=== PATIENT | male | born 1975 | race Hispanic/Latino ===

== ENCOUNTER 2019-11-11 09:48 | Inpatient (IN) | payer SELFPAY ==
[~2019-11-11] VITALS: Ht 165.1 cm; Wt 61.2 kg
[2019-11-11] MEDS ORDERED: SODIUM CHLORIDE 0.9% 1000ML 1,000 ML IV STA (10:19)
[2019-11-11] MEDS ORDERED: ONDANSETRON HCL INJ 2MG/ML 2ML 2 MG/ML VIAL IV STA (10:19)
[2019-11-11] MEDS ORDERED: PANTOPRAZOLE 40 MG 10ML VIAL IV STA (10:19)
[2019-11-11] MEDS ORDERED: KETOROLAC TROMETHAMINE 30 MG/ML VIAL IV STA (10:19)
[2019-11-11 10:59] LABS: BASOPHILS % 0.2 % (0.0-1.0); HEMOGLOBIN 14.2 g/dL (14.0-18.0); LYMPHOCYTES # (AUTO) 0.7 (1.0-3.2); LYMPHOCYTES % 10.2 % (18.0-39.1); MEAN CORPUSCULAR HEMOGLOBIN 31.3 pg (28-32); MEAN CORPUSCULAR HGB CONC 33.8 g/dL (31-35); MEAN CORPUSCULAR VOLUME 92.7 fL (81-99); MONOCYTES # (AUTO) 0.2 (0.2-0.8); MONOCYTES % 3.6 % (4.4-11.3); NEUTROPHILS # (AUTO) 5.5 (2.1-6.9); NEUTROPHILS % 85.7 % (38.7-80.0); PLATELET COUNT 113 x10e3/uL (140-360); RED BLOOD COUNT 4.53 x10e6/uL (4.3-5.7); RED CELL DISTRIBUTION WIDTH 13.5 % (11.7-14.4)
[2019-11-11 11:16] LABS: INR 0.98; PROTHROMBIN TIME 13.6 seconds (11.9-14.5)
[2019-11-11 11:17] LABS: PARTIAL THROMBOPLASTIN TIME 40.2 seconds (23.8-35.5)
[2019-11-11 11:25] LABS: ALANINE AMINOTRANSFERASE 140 IU/L (0-55); ALBUMIN 3.1 g/dL (3.5-5.0); ALBUMIN/GLOBULIN RATIO 0.7 (0.8-2.0); ALKALINE PHOSPHATASE 209 IU/L (40-150); ANION GAP 17.3 mmol/L (8-16); BLOOD UREA NITROGEN 7 mg/dL (7-26); BUN/CREATININE RATIO 8 (6-25); CARBON DIOXIDE 27 mmol/L (22-29); CHLORIDE 96 mmol/L (98-107); CREATINE KINASE 92 IU/L (30-200); CREATININE, SERUM 0.91 mg/dL (0.72-1.25); EST GLOMERULAR FILTRATION RATE > 60 ML/MIN (60-); GLUCOSE 103 mg/dL (74-118); POTASSIUM 3.3 mmol/L (3.5-5.1); SODIUM 137 mmol/L (136-145)
[2019-11-11] MEDS ORDERED: CEFTRIAXONE SOD 1 GM/NS 50 ML 50 ML IV SCH (11:45)
[2019-11-11 12:02] LABS: CLARITY,URINE CLEAR (CLEAR); COLOR,URINE YELLOW (YELLOW)
[2019-11-11 12:03] LABS: BILIRUBIN,URINE MODERATE (NEGATIVE); KETONES,URINE NEGATIVE (NEGATIVE); LEUKOCYTE ESTERASE ,URINE NEGATIVE (NEGATIVE); NITRITE,URINE NEGATIVE (NEGATIVE); PROTEIN,URINE DIPSTICK 2+ (NEGATIVE)
[2019-11-11 12:06] LABS: BACTERIA,URINE MODERATE /HPF; EPITHELIAL CELLS,URINE FEW /LPF
[2019-11-11] MEDS ORDERED: ALBUTEROL SULFATE HFA 8GM INHALATION AEROSOL INH PRN (12:15)
[2019-11-11] MEDS ORDERED: SODIUM CHLORIDE 0.9% 1000ML 1,000 ML IV SCH (12:15)
[2019-11-11] MEDS ORDERED: AZITHROMYCIN 500MG/NS 250 ML 250 ML IV SCH (12:30)
--- NOTE | 2019-11-11 12:35 | Emergency Department Note ---
History of Present Illnes History of Present Illness Chief Complaint: COVID PUI History of Present Illness This is a 44 year old male C/O FEVER AND INABILITY TO KEEP ANYTHING DOWN X 1 WEEK C/O N/V, WEAKNESS, MUSCLE ACHES, CHILLS STATES FEVER AT HOME 103 STATES HE WAS TESTED AT [facility] FOR COVID AND RESULTS WERE NEGATIVE 11/08/2019 DENIES DIARRHEA LAST MEAL LAST NIGHT WHEN HE HAD CHICKEN SOUP BUT VOMITED AFTERWARDS C/O COUGH. 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 Any updates have been documented here. Past Medical History Recent Fever: Yes Clinical Suspicion of Infectio: Yes New/Unexplained Change in Ment: No Past Medical History: None Past Surgical History: None Social History Smoking Cessation: Former smoker Counseling Performed: No Alcohol Use: Occasional Any Illegal Drug Use: No TB Exposure/Symptoms: No Physically hurt or threatened: No Other Last Tetanus: UNK Any Pre-Existing Lines (PICC,: No Is patient up to date on immun: No Last Flu: OOD Last Pneumovax: OOD Review of Systems Review of Systems Constitutional: Reports chills, Reports fever, Reports malaise, Reports weakness EENTM: Reports no symptoms Cardiovascular: Reports no symptoms Respiratory: Reports cough, Reports dyspnea Gastrointestinal: Reports nausea, Reports vomiting Genitourinary: Reports no symptoms Musculoskeletal: Reports as per HPI, Reports joint pain, Reports muscle pain Integumentary: Reports no symptoms Neurological: Reports no symptoms Psychological: Reports no symptoms Endocrine: Reports no symptoms Hematological/Lymphatic: Reports no symptoms Physical Exam Related Data Allergies: Coded Allergies: No Known Allergies (Unverified , 11/11/19) Triage Vital Signs Vital Signs Date Time Temp Pulse Resp B/P (MAP) Pulse Ox O2 Delivery O2 Flow Rate FiO2 11/11/19 09:55 99.9 94 20 113/80 100 Vital signs reviewed: Yes Physical Exam CONSTITUTIONAL Constitutional: Reports well-developed, Reports well-nourished HENT HENT: Reports normocephalic, Reports atraumatic, Reports oropharynx clear/ moist, Reports nose normal HENT L/R: Reports left ext ear normal, Reports right ext ear normal EYES Eyes: Reports PERRL, Reports conjunctivae normal NECK Neck: Reports ROM normal PULMONARY Pulmonary: Reports other (DECREASED BS'S THROUGHOUT) CARDIOVASCULAR Cardiovascular: Reports regular rhythm, Reports heart sounds normal, Reports capillary refill normal, Reports normal rate GASTROINTESTINAL Abdominal: Reports soft, Reports nontender, Reports bowel sounds normal GENITOURINARY Genitourinary: Reports exam deferred SKIN Skin: Reports warm, Reports dry MUSCULOSKELETAL Musculoskeletal: Reports ROM normal NEUROLOGICAL Neurological: Reports alert, Reports oriented x 3, Reports no gross motor or sensory deficits PSYCHOLOGICAL Psychological: Reports mood/affect normal, Reports judgement normal Results Laboratory Result Diagram: 11/11/19 1022 11/11/19 1022 Laboratory Laboratory Tests Test 11/11/19 10:22 White Blood Count 6.36 x10e3/uL (4.8-10.8) Red Blood Count 4.53 x10e6/uL (4.3-5.7) Hemoglobin 14.2 g/dL (14.0-18.0) Hematocrit 42.0 % (38.2-49.6) Mean Corpuscular Volume 92.7 fL (81-99) Mean Corpuscular Hemoglobin 31.3 pg (28-32) Mean Corpuscular Hemoglobin Concent 33.8 g/dL (31-35) Red Cell Distribution Width 13.5 % (11.7-14.4) Platelet Count 113 x10e3/uL (140-360) Neutrophils (%) (Auto) 85.7 % (38.7-80.0) Lymphocytes (%) (Auto) 10.2 % (18.0-39.1) Monocytes (%) (Auto) 3.6 % (4.4-11.3) Eosinophils (%) (Auto) 0.0 % (0.0-6.0) Basophils (%) (Auto) 0.2 % (0.0-1.0) Neutrophils # (Auto) 5.5 (2.1-6.9) Lymphocytes # (Auto) 0.7 (1.0-3.2) Monocytes # (Auto) 0.2 (0.2-0.8) Eosinophils # (Auto) 0.0 (0.0-0.4) Basophils # (Auto) 0.0 (0.0-0.1) Absolute Immature Granulocyte (auto 0.02 x10e3/uL (0-0.1) Prothrombin Time 13.6 seconds (11.9-14.5) Prothromb Time International Ratio 0.98 Activated Partial Thromboplast Time 40.2 seconds (23.8-35.5) Urine Color Yellow (YELLOW) Urine Clarity Clear (CLEAR) Urine pH 7 (5 - 7) Urine Specific [place] 1.025 (1.010-1.025) Urine Protein 2+ (NEGATIVE) Urine Glucose (UA) Negative (NEGATIVE) Urine Ketones Negative (NEGATIVE) Urine Blood Trace (NEGATIVE) Urine Nitrite Negative (NEGATIVE) Urine Bilirubin Moderate (NEGATIVE) Urine Urobilinogen 8.0 mg/dL (0.2 - 1) Urine Leukocyte Esterase Negative (NEGATIVE) Urine RBC 6-10 /HPF (0-5) Urine WBC 11-20 /HPF (0-5) Urine Epithelial Cells Few /LPF (NONE) Urine Bacteria Moderate /HPF (NONE) Sodium Level 137 mmol/L (136-145) Potassium Level 3.3 mmol/L (3.5-5.1) Chloride Level 96 mmol/L (98-107) Carbon Dioxide Level 27 mmol/L (22-29) Anion Gap 17.3 mmol/L (8-16) Blood Urea Nitrogen 7 mg/dL (7-26) Creatinine 0.91 mg/dL (0.72-1.25) Estimat Glomerular Filtration Rate > 60 ML/MIN (60-) BUN/Creatinine Ratio 8 (6-25) Glucose Level 103 mg/dL (74-118) Calcium Level 9.0 mg/dL (8.4-10.2) Total Bilirubin 1.7 mg/dL (0.2-1.2) Aspartate Amino Transf (AST/SGOT) 92 IU/L (5-34) Alanine Aminotransferase (ALT/SGPT) 140 IU/L (0-55) Alkaline Phosphatase 209 IU/L (40-150) Creatine Kinase 92 IU/L (30-200) Creatine Kinase MB 0.60 ng/mL (0-5.0) Troponin I 0.033 ng/mL (0-0.300) Total Protein 7.5 g/dL (6.5-8.1) Albumin 3.1 g/dL (3.5-5.0) Globulin 4.4 g/dL (2.3-3.5) Albumin/Globulin Ratio 0.7 (0.8-2.0) Lab results reviewed: Yes Imaging Imaging results reviewed: Yes Diagnostics Tests Diagnostic test(s) reviewed: Yes Procedures 12 Lead ECG Interpretation ECG Interpretation : ECG: ECG 1 Date: Nov 11, 2019 Time: 10:09 Rhythm: sinus rhythm Rate: normal (95) QRS axis: left Conduction: incomplete RBBB ST segments normal: Yes T waves normal: Yes Clinical Impression: abnormal ECG Assessment & Plan Medical Decision Making MDM COUGH, SOB, N/V, ACHY, F/C - CHECK CBC, CHEM, ECG, COVID SWAB, CXR, CARDIAC EN ZYMES - DDX INCLUDES BRONCHITIS, PNEUMONIA, COVID19, DEHYDRATION, RHABDOMYOLYSIS, STEMI/NSTEMI, ELECTROLYTE ABNL, ELEV LFT'S Reassessment Reassessment I SPOKE WITH ON-CALL , DR MATUTE AND ALSO THOMAS MCCALLUM AND Beto QUIROZ Assessment & Plan Final Impression: (1) Pneumonia (2) Vomiting (3) Elevated liver enzymes Depart Disposition: ADMITTED Last Vital Signs Date Time Temp Pulse Resp B/P (MAP) Pulse Ox O2 Delivery O2 Flow Rate FiO2 11/11/19 12:15 88 26 101/67 99 11/11/19 09:55 99.9 Medications in the ED Pantoprazole Sodium 40 mg ONCE STAT IV Last administered on 11/11/19at 10:43; Admin Dose 40 MG; Start 11/11/19 at 10:19; Stop 11/11/19 at 10:28; Status DC Ondansetron HCl 4 mg ONCE STAT IV Last administered on 11/11/19at 10:42; Admin Dose 4 MG; Start 11/11/19 at 10:19; Stop 11/11/19 at 10:28; Status DC Ketorolac Tromethamine 30 mg ONCE STAT IV Last administered on 11/11/19at 10:43; Admin Dose 30 MG; Start 11/11/19 at 10:19; Stop 11/11/19 at 10:28; Status DC Sodium Chloride 1,000 ml @ 0 mls/hr Q0M STAT IV Last administered on 11/11/19at 10:42; Admin Dose 999 MLS/HR; Start 11/11/19 at 10:19; Stop 11/11/19 at 10:28; Status DC Ceftriaxone Sodium 50 ml @ 100 mls/hr Q24H IV Last administered on 11/11/19at 12:10; Admin Dose 100 MLS/HR; Start 11/11/19 at 11:45; Stop 11/18/19 at 11:44 DEDRICK DELGADO MD Nov 11, 2019 12:35
[2019-11-11 12:39] LABS: AMYLASE 75 U/L (25-125); LIPASE 22 U/L (8-78)
--- NOTE | 2019-11-11 12:54 | Diagnostic Imaging Report ---
EXAMINATION: CHEST SINGLE (PORTABLE) INDICATION: Cough, fever COMPARISON: None FINDINGS: LINES/TUBES:None LUNGS:The lungs are well-inflated. No focal consolidation or pulmonary edema. PLEURA:No pleural effusion or pneumothorax. MEDIASTINUM:The cardiomediastinal silhouette appears normal in size and shape. BONES/SOFT TISSUES:No acute osseous injury. ABDOMEN:No free air under the diaphragm. IMPRESSION: No focal pneumonia or pulmonary edema. Signed by: Tresa Kapoor MD on 11/11/2019 12:50 PM
--- NOTE | 2019-11-11 13:11 | NUR ---
Recvd patient from ER. AAOx3, Not in any distress, skin intact, call light in reach, keep monitoring
--- NOTE | 2019-11-11 13:47 | Diagnostic Imaging Report ---
EXAM: Right upper quadrant abdominal ultrasound INDICATION: Right upper quadrant pain COMPARISON: None. TECHNIQUE: Transverse and longitudinal images of the right upper quadrant abdomen were obtained FINDINGS: Liver: Size: 18.2 cm in the right midclavicular line, normal Appearance: Normal echogenicity, smooth contour Mass: No focal masses Gallbladder: Sludge in the gallbladder. No gallbladder distension, pericholecystic fluid, wall thickening, stone, or reported sonographic Foss's sign. Gallbladder wall measures 3 mm. Bile Ducts: Intrahepatic Ducts: No dilatation Extrahepatic Ducts: Common bile duct measures 5 mm Pancreas: Visualized portions of the pancreatic head, neck and proximal body are normal. Kidney: The right kidney measures 11.7 cm without evidence of hydronephrosis or stone. Vessels: Aorta: Visualized portions are normal Inferior Vena Cava: Visualized portions are normal Main Portal Vein: 0.9 cm, normal size with hepatopetal flow. Free Fluid: No ascites or pleural effusion IMPRESSION: Sludge in the gallbladder. No sonographic evidence of cholecystitis. Signed by: Tresa Kapoor MD on 11/11/2019 1:44 PM
--- NOTE | 2019-11-11 15:15 | NUR ---
H&P cc: muscle aches and vomiting with fever HPI: 44oM, PCP none, developed muscle aches, vomiting and temperature 102. COVID testing done negative; No sob. Mild cough for 7 days. PMH: hx cigs Pshx: none allergies; see emr Fh/Sh; ; hx cigs meds; see MAR ROS; no f/c/s/diarrhea/cp/skin rash/dizzines/confusion/focal limb wekness/vision changes v/s revd PE tired appearing anicteric ns1s2 mod bs soft nt nd no e/t skin dry flat affect a&ox3; conrad labs/meds revd A/P:44yoM UTI- iv abx Gallbladder sludge- monitor; reassess Transaminitis- f/u Hypokalemia- replace and recheck thrombocytopenia- avoid heparin Propo: scd dispo; f/u Martín Kirby MD, PhD. A/P: UTI- IV abx; Hypokalemia- replace/recheck Transaminitis- check hepatitis panel Gallbladder sludge- f/u symptomatology THrombocytoepnia- avoid heparin prods; due to liver ds? Prop: scd dispo: Martín Monterroso MD, PhD
[2019-11-11 16:06] VITALS: BP 101/67
[2019-11-11 16:22] VITALS: BP 126/71
[2019-11-11] MEDS ORDERED: LACTULOSE SYRUP 20 GM/30 ML UDC PO PRN (16:30)
--- NOTE | 2019-11-11 19:40 | Consultation ---
DATE OF CONSULTATION: Pulmonary Critical Care Consultation CHIEF COMPLAINT: Dyspnea and fevers. HISTORY OF PRESENT ILLNESS: The patient is a 44-year-old man. He has a history of some fevers and dyspnea for the past week. He denies any cough. He has not had abdominal pain. He has no nausea or vomiting. PAST MEDICAL HISTORY: 1. No prior history of asthma or cardiopulmonary disease. 2. No prior history of diabetes. 3. No prior history of hypertension. ALLERGIES: NO KNOWN DRUG ALLERGIES. SOCIAL HISTORY: The patient is not a smoker or drinker. REVIEW OF SYSTEMS: The patient has no fever. He has no headache. He does not have any chest pain. He does have some dyspnea. He is not complaining of abdominal pain. There is no nausea or vomiting. He does not have any leg edema. There are no neurological complaints. PHYSICAL EXAMINATION: VITAL SIGNS: The blood pressure is 101/67 and saturation is 99%. The pulse is 88. Respiratory rate is 26. HEENT: Shows no facial swelling or erythema. CARDIAC: Reveals regular rate and rhythm with normal S1 and S2. LUNGS: Auscultation of lungs reveals clear breath sounds bilaterally. There is no wheezing. ABDOMEN: Soft and nontender. There is no rebound or guarding. EXTREMITIES: Shows no leg edema or calf tenderness. There is no cyanosis or clubbing. SKIN: Shows no rashes. NEUROLOGICAL: Shows no focal abnormalities. LABORATORY DATA: The total bilirubin is 1.7 and the ALT is 140 and the AST is 92. Alkaline phosphatase is 209. Potassium is 3.3. CBC is significant for a low platelet count of 113. Urinalysis shows 10 to 20 white blood cells. IMPRESSION: 1. Abnormal liver function tests with a cholestatic pattern. 2. Fever and shortness of breath. 3. Probable viral pneumonia. PLAN: 1. IV fluids. 2. Right upper quadrant ultrasound. 3. Antiemetics. 4. Oxygen. 5. Tylenol. Julian Verma MD [facility] /[id number]
[2019-11-11 20:00] VITALS: BP 109/79
--- NOTE | 2019-11-11 20:10 | Consultation ---
DATE OF CONSULTATION: 11/11/2019 REASON FOR CONSULTATION: Fever, headache, not feeling well. HISTORY OF PRESENT ILLNESS: Mr. Darryl Foreman is a 44-year-old gentleman, no past medical history, comes in with 4 days history of fever and chills, not feeling well, headache, weak, not eating, muscle aches. The patient comes into the emergency room where he was admitted. PAST MEDICAL HISTORY: Denies. PAST SURGICAL HISTORY: Denies. ALLERGIES: NKA. SOCIAL HISTORY: He used to smoke. He used to drink. He used to use drugs, but not anymore, it has been years ago. MEDICATIONS: Currently azithromycin, Rocephin, albuterol, Zofran. LABORATORY DATA: Reviewed. White count 6.36, hemoglobin 14, hematocrit 42, his platelet 113. His COVID-19 was negative. Sodium 137, potassium 3.3, his AST 92, ALT 140. His ultrasound of the gallbladder was done, which showed sludge. No evidence of cholecystitis. Chest x-ray was done, showed there is no pneumonia. PHYSICAL EXAMINATION: GENERAL: Currently alert, oriented, does not seem acute distress. VITAL SIGNS: Stable, afebrile. HEENT: He is not icteric. NECK: Supple. CHEST: Clear. HEART: S1 and S2. No S3, S4, or murmur. ABDOMEN: Soft. Bowel sounds present. No tenderness. EXTREMITIES: No edema. SKIN: No rash. IMPRESSION: 1. Headache, fever, generalized achiness, probably viral, etiology unclear. 2. Elevated liver enzyme, hepatitis, probably viral versus other. RECOMMENDATIONS: Recommend to check hepatitis A, B, and C, CMV, EBV and Toxo IgG, IgM. He continued to have headache, however, his neck is supple. We told there was possibility of LP. We will reassess again in the morning. I am going to stop his antibiotic. Continue supportive care. Continue IV fluid. Recheck CBC, Chem panel in the morning. MD RODRICK Case/AIMEE /[id number]
[2019-11-11 21:00] VITALS: BP 109/79
[2019-11-11] MEDS: ONDANSETRON HCL INJ 2MG/ML 2ML 2 MG/ML VIAL IV PRN (21:05)
--- NOTE | 2019-11-11 21:30 | NUR ---
PATIENT IS FEBRILE.NAUSEATED.ZOFRAN 4MG IV GIVEN.NOTIFIED TO .RECEIVED ANTIBIOTICS ORDERS.IMPLEMENTED.COOL BLANKETS NOT AVAILABLE.APPLIED COLD ICE PACK .KEEP MONITOR THE PATIENT.
[2019-11-11] MEDS ORDERED: PROMETHAZINE 12.5MG/ NACL 0.9% 12.5 MG/50 ML BAG IV PRN (21:45)
[2019-11-11] MEDS: METRONIDAZOLE 500MG/NS 100ML 100 ML IV SCH (21:51)
--- NOTE | 2019-11-11 22:00 | NUR ---
Notified housekeeper and laundry assistant about the necessity of cooling blanket. applied cold compress till get cooling blanket.housekeeper and laundry assistant and charge nurse are in pt's room .arranged cooling blanket and applied.reduce the room temp.provided fan .iv fluid running.family member at bed side.
--- NOTE | 2019-11-11 23:00 | NUR ---
Applied cooling blanket.keep monitor the patient.
[2019-11-12] VITALS (8 sets, daily range): BP systolic 98–126; BP diastolic 66–81
--- NOTE | 2019-11-12 00:30 | NUR ---
TEMP NOTED 102.7 RECTALLY.NOTIFIED TO MD MATUTE.
--- NOTE | 2019-11-12 00:52 | NUR ---
MITZI MORROW, ED CHARGE SPOKE TO DR. AUDREY MATUTE AT 0045; NOTIFIED OF 103.2 F TEMPERATURE, NEW ORDER RECEIVED FOR REPEAT PUI COVID
--- NOTE | 2019-11-12 01:00 | NUR ---
ordered for covid test 19rpt.done.
[2019-11-12] MEDS: SODIUM CHLORIDE 0.9% 1000ML 1,000 ML IV SCH ×4 (01:23→21:55)
[2019-11-12] MEDS: METRONIDAZOLE 500MG/NS 100ML 100 ML IV SCH (06:24)
[2019-11-12 06:57] LABS: BASOPHILS % 0.3 % (0.0-1.0); HEMATOCRIT 38.8 % (38.2-49.6); HEMOGLOBIN 12.6 g/dL (14.0-18.0); LYMPHOCYTES # (AUTO) 0.7 (1.0-3.2); MEAN CORPUSCULAR HEMOGLOBIN 30.7 pg (28-32); MEAN CORPUSCULAR HGB CONC 32.5 g/dL (31-35); MEAN CORPUSCULAR VOLUME 94.4 fL (81-99); MONOCYTES # (AUTO) 0.5 (0.2-0.8); MONOCYTES % 5.8 % (4.4-11.3); NEUTROPHILS # (AUTO) 6.6 (2.1-6.9); NEUTROPHILS % 84.4 % (38.7-80.0); PLATELET COUNT 93 x10e3/uL (140-360); RED BLOOD COUNT 4.11 x10e6/uL (4.3-5.7)
--- NOTE | 2019-11-12 06:58 | NUR ---
IM- progress note O/N see below ROS; no f/c/s/diarrhea/cp/skin rash/dizzines/confusion/focal limb wekness/vision changes v/s revd PE tired appearing anicteric ns1s2 mod bs soft nt nd no e/t skin dry flat affect a&ox3; conrad labs/meds revd A/P:44yoM Sepsis- POA- IV abx/fluids UTI- iv abx Gallbladder sludge- monitor; reassess Transaminitis- f/u Hypokalemia- replace and recheck thrombocytopenia- avoid heparin Propo: scd dispo; f/u 6-12 labs pending; cultures negative to date. Severe Sepsis with elevated LFTs; High fevers overnight- cooling blanket; d/c ceftriaxone, use merrem, add vanco, cont fllagyl; Notify ID; cont IVF; check hepatitis panel; Yann Kirby MD, PhD.
--- NOTE | 2019-11-12 07:10 | NUR ---
RCD PT AT BED PT IS ALERT AND ORIENTED RESTING ON BED IV PATENT PT ON COOLING BLANKET SINCE PTS LIVER ENZYMES ELEVATED FAMILY AT BED SIDE BED LOW AND LOCKED CALL LIGHT IN REACH
--- NOTE | 2019-11-12 07:10 | NUR ---
Bed side shift report given to oncoming RN.stable condition.
[2019-11-12 07:34] LABS: ALANINE AMINOTRANSFERASE 120 IU/L (0-55); ALBUMIN 2.5 g/dL (3.5-5.0); ALBUMIN/GLOBULIN RATIO 0.6 (0.8-2.0); ALKALINE PHOSPHATASE 192 IU/L (40-150); ANION GAP 16.5 mmol/L (8-16); BLOOD UREA NITROGEN 8 mg/dL (7-26); BUN/CREATININE RATIO 11 (6-25); CALCIUM 7.9 mg/dL (8.4-10.2); CARBON DIOXIDE 22 mmol/L (22-29); CHLORIDE 98 mmol/L (98-107); EST GLOMERULAR FILTRATION RATE > 60 ML/MIN (60-); GLUCOSE 93 mg/dL (74-118); POTASSIUM 3.5 mmol/L (3.5-5.1); SODIUM 133 mmol/L (136-145)
--- NOTE | 2019-11-12 07:47 | NUR ---
AC TO DR MATUTE TO PAGE DR MCCALLUM TO NOTIFY THE CONDITION OF THE PT
[2019-11-12] MEDS ORDERED: MEROPENEM 500MG/ NS 50ML 50 ML IV SCH (08:00)
--- NOTE | 2019-11-12 08:20 | NUR ---
dr reddy returned the call notified the condition of the pt he said he coming to the pt
[2019-11-12 08:52] LABS: ANION GAP 17.4 mmol/L (8-16); BLOOD UREA NITROGEN 8 mg/dL (7-26); BUN/CREATININE RATIO 11 (6-25); CALCIUM 8.5 mg/dL (8.4-10.2); CARBON DIOXIDE 22 mmol/L (22-29); CHLORIDE 98 mmol/L (98-107); CREATININE, SERUM 0.71 mg/dL (0.72-1.25); EST GLOMERULAR FILTRATION RATE > 60 ML/MIN (60-); GLUCOSE 96 mg/dL (74-118); POTASSIUM 3.4 mmol/L (3.5-5.1); SODIUM 134 mmol/L (136-145)
[2019-11-12] MEDS ORDERED: VANCOMYCIN 1GM/NS 250 ML 250 ML IV SCH (09:00)
[2019-11-12] MEDS ORDERED: ACETAMINOPHEN 325 MG TAB PO PRN (11:00)
[2019-11-12] MEDS ORDERED: SODIUM CHLORIDE 0.9% 50ML 50 ML ONE (11:16)
[2019-11-12] MEDS ORDERED: IOPAMIDOL 370 MG/ML 200 ML INFUS..BTL INJ ONE (11:16)
[2019-11-12] MEDS: CEFTRIAXONE SOD 1 GM/NS 50 ML 50 ML IV SCH (11:30)
--- NOTE | 2019-11-12 11:44 | NUR ---
PT REFUSED TYLENOL
[2019-11-12] MEDS ORDERED: CEFTRIAXONE SOD 1 GM/NS 50 ML 50 ML IV SCH (12:00)
--- NOTE | 2019-11-12 12:19 | Diagnostic Imaging Report ---
EXAM: CT Abdomen and Pelvis WITH intravenous contrast INDICATION: Fever, abdominal pain COMPARISON: None. TECHNIQUE: Abdomen and pelvis were scanned utilizing a multidetector helical scanner from the lung base to the pubic symphysis after administration of IV contrast. Coronal and sagittal reformations were obtained. Routine protocol was performed. Scan was performed during portal venous phase. IV CONTRAST: 100mL of Isovue 370 ORAL CONTRAST: Water RADIATION DOSE: Total DLP: 245 mGy*cm Dose modulation, iterative reconstruction, and/or weight based adjustment of the mA/kV was utilized to reduce the radiation dose to as low as reasonably achievable. FINDINGS: LOWER THORAX: Trace right pleural effusion. Minimal right lower lobe dependent subsegmental atelectasis. Mild smooth interlobular septal thickening which can be seen with mild pulmonary interstitial edema. HEPATOBILIARY: No focal liver lesion. No biliary ductal dilation. Unremarkable gallbladder. SPLEEN: No splenomegaly. PANCREAS: No focal masses or ductal dilatation. ADRENALS: No adrenal nodules. KIDNEYS/URETERS: No hydronephrosis, stones, or solid mass lesions. PELVIC ORGANS/BLADDER: Unremarkable. PERITONEUM / RETROPERITONEUM: No free air or fluid. LYMPH NODES: No lymphadenopathy. VESSELS: Unremarkable. GI TRACT: Mild diverticulosis. No CT evidence of diverticulitis. No abnormal bowel thickening. No bowel obstruction. Normal appendix. BONES AND SOFT TISSUES: Unremarkable. IMPRESSION: No acute findings in the abdomen or pelvis. Signed by: Tresa Kapoor MD on 11/12/2019 12:16 PM
[2019-11-12] MEDS: ACETAMINOPHEN 325 MG TAB PO PRN ×2 (12:30→23:27)
[2019-11-12] MEDS: ONDANSETRON HCL INJ 2MG/ML 2ML 2 MG/ML VIAL IV PRN ×2 (12:31→23:26)
--- NOTE | 2019-11-12 13:34 | Progress Note ---
DATE: SUBJECTIVE: The patient is seen and evaluated. Family is in room. Questions answered. Still complaining of fever and not feeling well. Appetite is fair. He eats pretty much jello's and liquid diet, tolerating okay. Denied diarrhea, still with body ache. He still has this left lower quadrant pain, which was a traumatized at work, but on physical exam, it is soft and there was no firm area palpated, it is nontender, but it is bruised externally. REVIEW OF SYSTEMS: Urine is dark. PHYSICAL EXAMINATION: VITAL SIGNS: Temperature is 101.9, pulse is 86, respiration 19, blood pressure 109/67. GENERAL: Alert and oriented, ill looking. CV: S1-S2. CHEST: Equal expansion. Decreased breath sounds. No acute distress. ABDOMEN: Nontender. No distention. Left lower quadrant bruise noted. HEENT: Moist. No pallor. No JVD. EXTREMITIES: Moves all. No acute finding. MEDICATIONS: Medication list reviewed from ID point of view. The patient is on vancomycin IV, meropenem, Flagyl. LABORATORY STUDIES: White count of 7.77, hemoglobin 12.6, platelet 93. Sodium 134, potassium 3.4, creatinine 0.71. Serology: Coronavirus PCR not detected on 11/10 and 11/11. CMV, EBV, hepatitis panel and toxoplasma workup all pending. MICROBIOLOGY: Blood cultures pending. Urine culture negative 24 hours. RADIOLOGY STUDIES: Gallbladder ultrasound is negative for acute cholecystitis. Chest x-ray showed no focal pneumonia or pulmonary edema. ASSESSMENT AND PLAN: 1. Viral syndrome with unclear etiology. We will follow with serology and monitor patient and blood cultures also still pending. 2. Fever. 3. Headache. 4. Elevated LFTs, which are improving. We will follow with this serology. Antibiotics noted. Discussed with Dr. Rosales. Please refer to chart for more information. Dictated by Richardson Li PA-C (Al) Kyree Rosales MD /MODL /[id number]
--- NOTE | 2019-11-12 14:00 | NUR ---
pt resting on bed no fever now family at bed side
--- NOTE | 2019-11-12 15:00 | NUR ---
PATIENT FEEL BETTER NO FEVER NO OTHER COMPLAINTS FAMILY AT BED SIDE
--- NOTE | 2019-11-12 18:46 | NUR ---
pt resting on bed bed side report given to oncoming nurse
[2019-11-12] MEDS ORDERED: ZOLPIDEM TARTRATE 5 MG TAB PO PRN (22:15)
[2019-11-13] VITALS (8 sets, daily range): BP systolic 115–128; BP diastolic 73–90
[2019-11-13] MEDS: SODIUM CHLORIDE 0.9% 1000ML 1,000 ML IV SCH ×4 (07:00→23:55)
--- NOTE | 2019-11-13 07:00 | NUR ---
BEDSIDE SHIFT REPORT RECEIVED FROM RN MANAGED CARE RN. PT DENIES NEEDS AT THIS TIME.
[2019-11-13] MEDS: ONDANSETRON HCL INJ 2MG/ML 2ML 2 MG/ML VIAL IV PRN ×2 (07:50→23:55)
[2019-11-13 09:25] LABS: ANION GAP 15.2 mmol/L (8-16); BLOOD UREA NITROGEN 9 mg/dL (7-26); BUN/CREATININE RATIO 13 (6-25); CALCIUM 8.5 mg/dL (8.4-10.2); CARBON DIOXIDE 26 mmol/L (22-29); CHLORIDE 100 mmol/L (98-107); CREATININE, SERUM 0.71 mg/dL (0.72-1.25); EST GLOMERULAR FILTRATION RATE > 60 ML/MIN (60-); GLUCOSE 87 mg/dL (74-118); POTASSIUM 3.2 mmol/L (3.5-5.1); SODIUM 138 mmol/L (136-145)
[2019-11-13] MEDS: CEFTRIAXONE SOD 1 GM/NS 50 ML 50 ML IV SCH (11:22)
--- NOTE | 2019-11-13 11:26 | NUR ---
PT'S TEMP UP 101. ICE PACKS TO BILATERAL AXCILLARY AND GROIN. PT TOLERATING.
--- NOTE | 2019-11-13 13:09 | NUR ---
IM- progress note O/N see below ROS; no f/c/s/diarrhea/cp/skin rash/dizzines/confusion/focal limb wekness/vision changes v/s revd PE tired appearing anicteric ns1s2 mod bs soft nt nd no e/t skin dry flat affect a&ox3; conrad labs/meds revd A/P:44yoM Sepsis- POA- IV abx/fluids UTI- iv abx Gallbladder sludge- monitor; reassess Transaminitis- f/u Hypokalemia- replace and recheck thrombocytopenia- avoid heparin Propo: scd dispo; f/u 6-12 labs pending; cultures negative to date. Severe Sepsis with elevated LFTs; High fevers overnight- cooling blanket; d/c ceftriaxone, use merrem, add vanco, cont fllagyl; Notify ID; cont IVF; check hepatitis panel; 11-12 replace K; Cultures negative; Yann Kirby MD, PhD.
[2019-11-13] MEDS ORDERED: POTASSIUM CHLORIDE 20 MEQ TAB CR PO NR ×2 (13:15→19:45)
--- NOTE | 2019-11-13 13:49 | NUR ---
PROVIDED SELF PAY PACKET WITH [employer], AND GOLD CARD APPLICATION FOR [facility]
[2019-11-13] MEDS: ACETAMINOPHEN 325 MG TAB PO PRN (23:55)
[2019-11-14] VITALS (8 sets, daily range): BP systolic 115–126; BP diastolic 66–89
--- NOTE | 2019-11-14 05:19 | NUR ---
IM- progress note O/N see below ROS; no f/c/s/diarrhea/cp/skin rash/dizzines/confusion/focal limb wekness/vision changes v/s revd PE tired appearing anicteric ns1s2 mod bs soft nt nd no e/t skin dry flat affect a&ox3; cornad labs/meds revd A/P:44yoM Sepsis- POA- IV abx/fluids UTI- iv abx Gallbladder sludge- monitor; reassess Transaminitis- f/u Hypokalemia- replace and recheck thrombocytopenia- avoid heparin Propo: scd dispo; f/u 6-12 labs pending; cultures negative to date. Severe Sepsis with elevated LFTs; High fevers overnight- cooling blanket; d/c ceftriaxone, use merrem, add vanco, cont fllagyl; Notify ID; cont IVF; check hepatitis panel; 11-12 replace K; Cultures negative; 11-13 replace K; recheck later; cx negative; CT negative; Yann Kirby MD, PhD.
--- NOTE | 2019-11-14 07:00 | NUR ---
BEDSIDE SHIFT REPORT RECEIVED FROM ASSISTANT IMPORT MANAGER RN. PT DENIES NEEDS AT THIS TIME.
[2019-11-14 08:36] LABS: ANION GAP 12.9 mmol/L (8-16); BLOOD UREA NITROGEN 7 mg/dL (7-26); BUN/CREATININE RATIO 10 (6-25); CALCIUM 8.3 mg/dL (8.4-10.2); CARBON DIOXIDE 26 mmol/L (22-29); CHLORIDE 103 mmol/L (98-107); CREATININE, SERUM 0.68 mg/dL (0.72-1.25); EST GLOMERULAR FILTRATION RATE > 60 ML/MIN (60-); GLUCOSE 84 mg/dL (74-118); SODIUM 139 mmol/L (136-145)
[2019-11-14 08:42] LABS: POTASSIUM 2.9 mmol/L (3.5-5.1)
[2019-11-14 08:50] LABS: MAGNESIUM 2.2 MG/DL (1.3-2.1); PHOSPHORUS 2.3 MG/DL (2.3-4.7)
[2019-11-14] MEDS ORDERED: POTASSIUM CHLORIDE 20 MEQ TAB CR PO ONE (09:00)
[2019-11-14] MEDS ORDERED: POTASSIUM CHLORIDE 20MEQ/100ML 200 ML IV ONE (09:00)
[2019-11-14] MEDS: SODIUM CHLORIDE 0.9% 1000ML 1,000 ML IV SCH ×2 (09:16→16:45)
[2019-11-14] MEDS: CEFTRIAXONE SOD 1 GM/NS 50 ML 50 ML IV SCH (11:52)
[2019-11-14] MEDS: ACETAMINOPHEN 325 MG TAB PO PRN (23:37)
[2019-11-15] VITALS (8 sets, daily range): BP systolic 120–134; BP diastolic 74–96
[2019-11-15] MEDS: SODIUM CHLORIDE 0.9% 1000ML 1,000 ML IV SCH ×2 (00:19→16:39)
--- NOTE | 2019-11-15 06:11 | NUR ---
IM- progress note O/N see below ROS; no f/c/s/diarrhea/cp/skin rash/dizzines/confusion/focal limb wekness/vision changes v/s revd PE tired appearing anicteric ns1s2 mod bs soft nt nd no e/t skin dry flat affect a&ox3; cnorad labs/meds revd A/P:44yoM Sepsis- POA- IV abx/fluids UTI- iv abx Gallbladder sludge- monitor; reassess Transaminitis- f/u Hypokalemia- replace and recheck thrombocytopenia- avoid heparin Propo: scd dispo; f/u 6-12 labs pending; cultures negative to date. Severe Sepsis with elevated LFTs; High fevers overnight- cooling blanket; d/c ceftriaxone, use merrem, add vanco, cont fllagyl; Notify ID; cont IVF; check hepatitis panel; 6- replace K; Cultures negative; 6-14 replace K; recheck later; cx negative; CT negative; 6-15 fevers improving; check K Yann Kirby MD, PhD.
[2019-11-15] MEDS ORDERED: POTASSIUM CHLORIDE 20 MEQ TAB CR PO ONE (10:15)
[2019-11-15] MEDS: CEFTRIAXONE SOD 1 GM/NS 50 ML 50 ML IV SCH (11:05)
--- NOTE | 2019-11-15 14:01 | NUR ---
Rechecked Temp orally 101.1, will give tylenol 650 mg and recheck in 30 min, no acute distress noted, he is up in bed, on IV fluids
[2019-11-15] MEDS: ACETAMINOPHEN 325 MG TAB PO PRN ×2 (14:03→20:30)
--- NOTE | 2019-11-15 18:52 | NUR ---
patient resting up in bed, not in any distress
--- NOTE | 2019-11-15 20:10 | NUR ---
HIGH TEMP. 103 NOTED. NOTIFIED MARKETING REPORTING ANALYST FOR COOLING BLANKET PER MD ORDER.
--- NOTE | 2019-11-15 21:15 | NUR ---
Called to patient's room by Glass Beveller to help initiate cooling blanket.
--- NOTE | 2019-11-15 21:25 | NUR ---
GVE REPORT TO RN FOR CONTINUING OF CARE
--- NOTE | 2019-11-15 21:35 | NUR ---
Patient received lying in bed. AAO x 4. at bedside. Patient's temperature recorded as 103F .Patient utilizing "cooling blanket" to keep body temperature down. Will continue to monitor.
[2019-11-16] VITALS (9 sets, daily range): BP systolic 116–137; BP diastolic 71–90
--- NOTE | 2019-11-16 00:35 | NUR ---
Pt met criteria for SIRS Alert. Pt describing feeling of pressure all over and in chest, stating he feels he is not putting out as much fluid as is going in. Pt with non-pitting edema to BLE. Pt denies chest pain and SOB. No visible distress at this time. Labs drawn per protocol and CXR ordered at this time as well. No further orders at this time. Bedside nurse updated and aware.
[2019-11-16 01:06] LABS: BASOPHILS % 0.3 % (0.0-1.0); EOSINOPHILS % 0.1 % (0.0-6.0); HEMATOCRIT 34.7 % (38.2-49.6); HEMOGLOBIN 11.5 g/dL (14.0-18.0); LYMPHOCYTES % 29.5 % (18.0-39.1); MEAN CORPUSCULAR HEMOGLOBIN 31.3 pg (28-32); MEAN CORPUSCULAR HGB CONC 33.1 g/dL (31-35); MEAN CORPUSCULAR VOLUME 94.3 fL (81-99); MONOCYTES # (AUTO) 0.6 (0.2-0.8); MONOCYTES % 6.4 % (4.4-11.3); NEUTROPHILS # (AUTO) 6.3 (2.1-6.9); NEUTROPHILS % 62.7 % (38.7-80.0); PLATELET COUNT 235 x10e3/uL (140-360); RED BLOOD COUNT 3.68 x10e6/uL (4.3-5.7); RED CELL DISTRIBUTION WIDTH 14.4 % (11.7-14.4)
[2019-11-16 01:11] LABS: AMPHETAMINES SCREEN,URINE NEGATIVE (NEGATIVE); BENZODIAZEPINES SCREEN,URINE NEGATIVE (NEGATIVE); CLARITY,URINE CLEAR (CLEAR); COLOR,URINE YELLOW (YELLOW); KETONES,URINE NEGATIVE (NEGATIVE); LEUKOCYTE ESTERASE ,URINE NEGATIVE (NEGATIVE); NITRITE,URINE NEGATIVE (NEGATIVE); PHENCYCLIDINE SCREEN,URINE NEGATIVE (NEGATIVE); PROTEIN,URINE DIPSTICK NEGATIVE (NEGATIVE)
[2019-11-16 01:12] LABS: BILIRUBIN,URINE NEGATIVE (NEGATIVE); URINE UROBILINOGEN 0.2 mg/dL (0.2 - 1)
[2019-11-16 01:24] LABS: MAGNESIUM 2.1 MG/DL (1.3-2.1); PHOSPHORUS 3.6 MG/DL (2.3-4.7)
[2019-11-16 01:25] LABS: BACTERIA,URINE FEW /HPF; EPITHELIAL CELLS,URINE FEW /LPF; WBC,URINE (MAN) 0-5 /HPF (0-5)
[2019-11-16 01:26] LABS: RBC,URINE 0-5 /HPF (0-5)
[2019-11-16 01:38] LABS: CREATINE KINASE MB 0.9 ng/mL (0-5.0)
[2019-11-16 01:42] LABS: ALANINE AMINOTRANSFERASE 142 IU/L (0-55); ALBUMIN 2.7 g/dL (3.5-5.0); ALBUMIN/GLOBULIN RATIO 0.6 (0.8-2.0); ALKALINE PHOSPHATASE 185 IU/L (40-150); BLOOD UREA NITROGEN 9 mg/dL (7-26); BUN/CREATININE RATIO 12 (6-25); CALCIUM 8.3 mg/dL (8.4-10.2); CARBON DIOXIDE 25 mmol/L (22-29); CHLORIDE 99 mmol/L (98-107); CREATININE, SERUM 0.74 mg/dL (0.72-1.25); EST GLOMERULAR FILTRATION RATE > 60 ML/MIN (60-); GLUCOSE 101 mg/dL (74-118); SODIUM 136 mmol/L (136-145)
--- NOTE | 2019-11-16 01:53 | Diagnostic Imaging Report ---
EXAMINATION: CHEST SINGLE (PORTABLE) INDICATION: Pressure COMPARISON: Abdominal CT 11/12/2019 FINDINGS: TUBES and LINES: None. LUNGS: Normal lung volumes. Lungs are clear. Prominent central pulmonary vasculature. PLEURA: No pleural effusion or pneumothorax. HEART AND MEDIASTINUM: The cardiomediastinal silhouette is unremarkable. BONES AND SOFT TISSUES: No acute osseous lesion. Soft tissues are unremarkable. UPPER ABDOMEN: No free air under the diaphragm. IMPRESSION: Pulmonary vascular congestion. Signed by: Jake Lei DO on 11/16/2019 1:50 AM
[2019-11-16] MEDS: SODIUM CHLORIDE 0.9% 1000ML 1,000 ML IV SCH ×3 (03:57→20:49)
[2019-11-16] MEDS: ACETAMINOPHEN 325 MG TAB PO PRN ×2 (03:57→17:40)
--- NOTE | 2019-11-16 05:45 | NUR ---
Patient's rectal temperature recorded as 98.5F. Will continue to monitor.
--- NOTE | 2019-11-16 07:00 | NUR ---
Walking rounds done. Patient resting comfortably. Bed-side report given to oncoming nurse.
--- NOTE | 2019-11-16 10:23 | Progress Note ---
DATE: SUBJECTIVE: The patient is seen and evaluated. Available labs and notes reviewed. REVIEW OF SYSTEMS: Complained of fever last night. Has loose bowel movement, but has not diarrhea. No nausea, vomiting, chest pain, shortness of breath, or rash. He does have some headache and some feeling sensation of his head is warm. PHYSICAL EXAMINATION: VITAL SIGNS: Temperature 98.6, pulse 72, respirations 19, blood pressure 132/83. He had a maximum temperature of 103.4 last night at 9 o'clock. GENERAL: Alert and oriented. Ambulates with a good balance. No obvious acute finding. As I examined the patient clinically, he is acting normally, very pleasant, does not seem confused. CV: S1 and S2. CHEST: Equal expansion. No acute distress. ABDOMEN: Soft and nontender. No distention. HEENT: Moist. No pallor. No JVD. EXTREMITIES: No edema. Moves all extremities. LABORATORY STUDIES: White count of 10, hemoglobin 11.5, and platelet 235. Sodium 136, potassium 4, and creatinine 0.74. Toxicology presumptive positive for cannabinoids on 11/16/2019. Urinalysis otherwise negative. Serology; coronavirus PCR negative x2 here. Per my discussion with family, the patient had another COVID test outside of here, which that one was also negative. His CMV, EBV, toxoplasmosis pending. Hepatitis panel was negative. The patient has LFT showing improving ALP, ALT went up from 120 to 142, and AST improved from 87 to 73. However, his hepatitis panel is negative. RADIOLOGY STUDIES: The patient had a chest x-ray last night showing pulmonary vascular congestion. Also, his gallbladder ultrasound showed no sonographic evidence of a cholecystitis and also had a CT of abdomen and pelvis, which showed no acute findings in the abdomen and pelvis. ASSESSMENT AND PLAN: 1. Most likely viral syndrome. Serology is still pending. The patient spikes fever as high as 103 plus. We are still waiting for part of his serology to come back as mentioned above. Radiology studies including the gallbladder scan and abdominal CT with pelvis CT came back with no acute findings. He has elevated LFTs that are most part improving. Clinically, no complaints of abdominal pain, nausea, or vomiting. Microbiology is overall negative. He has 4 sets of blood culture and his set of urine culture that all came back negative from 11/10 to 11/11. His radiology studies again only shows vascular congestion of the lungs and a chest x-ray from this morning. We will follow with serology at this point and monitor the patient. Fever as mentioned above. 2. Headache. 3. Continue the patient clinically and follow with the labs. Please refer to chart for more information. Discussed with Dr. Rosales. Dictated by Richardson Li PA-C (Al) Kyree Rosales MD /MODL /[id number]
--- NOTE | 2019-11-16 12:13 | NUR ---
IM- progress note O/N see below ROS; no f/c/s/diarrhea/cp/skin rash/dizzines/confusion/focal limb wekness/vision changes v/s revd PE tired appearing anicteric ns1s2 mod bs soft nt nd no e/t skin dry flat affect a&ox3; conrad labs/meds revd A/P:44yoM Sepsis- POA- IV abx/fluids UTI- iv abx Gallbladder sludge- monitor; reassess Transaminitis- f/u Hypokalemia- replace and recheck thrombocytopenia- avoid heparin Propo: scd dispo; f/u 6-12 labs pending; cultures negative to date. Severe Sepsis with elevated LFTs; High fevers overnight- cooling blanket; d/c ceftriaxone, use merrem, add vanco, cont fllagyl; Notify ID; cont IVF; check hepatitis panel; 6-13 replace K; Cultures negative; 6-14 replace K; recheck later; cx negative; CT negative; 6-15 fevers improving; check K 6-16 febrile overnight; high fever; now afebrile; normotensive; all cx negative; no headache; no cough/sob; continue supportive care; Yann Kirby MD, PhD.
[2019-11-16] MEDS: CEFTRIAXONE SOD 1 GM/NS 50 ML 50 ML IV SCH (12:16)
--- NOTE | 2019-11-16 19:28 | NUR ---
Patient received sitting in chair. AAO x 4. at bedside. Patient had no complaints of pain. Respirations even and non-labored. Patient instructed to call for assistance when needed. Call light within reach.
[2019-11-17] VITALS: BP 124/70
[2019-11-17] MEDS: SODIUM CHLORIDE 0.9% 1000ML 1,000 ML IV SCH ×2 (01:06→09:05)
[2019-11-17] MEDS: ACETAMINOPHEN 325 MG TAB PO PRN ×2 (01:37→16:05)
[2019-11-17 04:00] VITALS: BP 130/78
--- NOTE | 2019-11-17 07:00 | NUR ---
Walking rounds done. Patient resting comfortably. Bed-side report given to oncoming nurse regarding patient's status.
--- NOTE | 2019-11-17 07:15 | NUR ---
Received bedside shift report. Patient ambulating in room, denies pain at this time. Family at bedside. Call light within reach.
[2019-11-17 07:47] VITALS: BP 113/70
[2019-11-17 07:58] LABS: BASOPHILS % 0.4 % (0.0-1.0); EOSINOPHILS % 0.2 % (0.0-6.0); HEMATOCRIT 38.7 % (38.2-49.6); HEMOGLOBIN 12.6 g/dL (14.0-18.0); LYMPHOCYTES # (AUTO) 3.4 (1.0-3.2); LYMPHOCYTES % 32.8 % (18.0-39.1); MEAN CORPUSCULAR HEMOGLOBIN 30.9 pg (28-32); MEAN CORPUSCULAR HGB CONC 32.6 g/dL (31-35); MEAN CORPUSCULAR VOLUME 94.9 fL (81-99); MONOCYTES % 9.2 % (4.4-11.3); NEUTROPHILS # (AUTO) 5.8 (2.1-6.9); NEUTROPHILS % 56.6 % (38.7-80.0); PLATELET COUNT 317 x10e3/uL (140-360); RED BLOOD COUNT 4.08 x10e6/uL (4.3-5.7); RED CELL DISTRIBUTION WIDTH 14.3 % (11.7-14.4)
[2019-11-17 08:09] LABS: ANION GAP 15.7 mmol/L (8-16); BLOOD UREA NITROGEN 7 mg/dL (7-26); BUN/CREATININE RATIO 10 (6-25); CALCIUM 8.5 mg/dL (8.4-10.2); CARBON DIOXIDE 27 mmol/L (22-29); CHLORIDE 100 mmol/L (98-107); CREATININE, SERUM 0.71 mg/dL (0.72-1.25); EST GLOMERULAR FILTRATION RATE > 60 ML/MIN (60-); GLUCOSE 84 mg/dL (74-118); POTASSIUM 3.7 mmol/L (3.5-5.1); SODIUM 139 mmol/L (136-145)
[2019-11-17 09:03] VITALS: BP 113/70
[2019-11-17 10:30] LABS: LYMPHOCYTES % (MANUAL) 38 % (19-48); MONOCYTES % (MANUAL) 7 % (3.4-9.0); NEUTROPHILS % (MANUAL) 52 % (40-74); NUCLEATED RED BLOOD CELLS 1; PLATELET ESTIMATE ADEQUATE; PLATELET MORPHOLOGY COMMENT NORMAL; RBC MORPHOLOGY COMMENT NORMAL
[2019-11-17] MEDS: CEFTRIAXONE SOD 1 GM/NS 50 ML 50 ML IV SCH (11:22)
--- NOTE | 2019-11-17 11:33 | Progress Note ---
DATE: SUBJECTIVE: The patient is seen and evaluated, discussed with the patient and the family member. Questions answered. No new complaints. Feels better overall. REVIEW OF SYSTEMS: No nausea, vomiting, chest pain, or shortness of breath. Fever has improved. Feels better today. MEDICATIONS: Reviewed. From ID point of view, the patient is on Rocephin. LABORATORY STUDIES: White count of 10.32, hemoglobin 12.6, and platelets 317. Sodium 139, potassium 3.7, and creatinine 0.71. Serology: Coronavirus PCR negative x2 on 11/10 and 11/11. Apparently had another coronavirus test done at outside of the hospital per my discussion with the family, which was negative as well. CMV IgM is less than 30, EBV IgM is less than 36, EBV nuclear antigen IgG antibody is 301. Hepatitis panel negative. Toxoplasma IgM is less than 3. MICROBIOLOGY: Blood culture and urine cultures negative. RADIOLOGY STUDIES: Chest x-ray from 11/15 shows pulmonary vascular congestion. PHYSICAL EXAMINATION: VITAL SIGNS: Temperature 99, pulse 89, respirations 16, and blood pressure 113/70. GENERAL: Alert and oriented, no acute distress. CV: S1-S2. CHEST: Equal expansion. Clear to auscultation. No acute distress. ABDOMEN: Soft. Nontender. No distention. HEENT: Moist. No pallor. No JVD. EXTREMITIES: Moves all. ASSESSMENT AND PLAN: 1. Viral syndrome most likely. 2. Fever, improved. 3. Serology as above. 4. Headache, improved. Had a maximum temperature of 100.7 last night at 9:40. Overall feels much better. Remains on Rocephin. Please refer to chart for more information. Discussed with Dr. Rosales in details. Dictated by Richardson Li PA-C (Al) Kyree Rosales MD /MODL /[id number]
[2019-11-17 11:56] VITALS: BP 127/87
[2019-11-17] MEDS ORDERED: MELOXICAM7.5 MG PO (12:38)
--- NOTE | 2019-11-17 12:42 | NUR ---
D/C summary Principal Dx: Sepsis- POA- IV abx/fluids UTI- iv abx Gallbladder sludge- monitor; reassess Transaminitis- f/u Hypokalemia- replace and recheck thrombocytopenia- avoid heparin Secondary Dx: Propo: scd dispo; f/u 6-12 labs pending; cultures negative to date. Severe Sepsis with elevated LFTs; High fevers overnight- cooling blanket; d/c ceftriaxone, use merrem, add vanco, cont fllagyl; Notify ID; cont IVF; check hepatitis panel; 6- replace K; Cultures negative; 6-14 replace K; recheck later; cx negative; CT negative; 6-15 fevers improving; check K 6-16 febrile overnight; high fever; now afebrile; normotensive; all cx negative; no headache; no cough/sob; continue supportive care; d/c home with meloxicam f/u 2-4 days stable d/c>35mins Yann Kirby MD, PhD.
[2019-11-17] MEDS ORDERED: ONDANSETRON HCL 4 MG ORAL DISINTEGRATING TAB PO PRN (13:30)
[2019-11-17 16:32] VITALS: BP 141/79
== END 2019-11-17 16:59 | disposition home or self-care (01) | DRG 872 ==
LOC: ER 09:48 → ERHOLD 12:05 → IMCU 13:20 → MED/SURG2 17:54 → OBSVTOIN 11-12 11:25
PROVIDERS: ADMIT Internal Medicine; ATTEND Internal Medicine
DX: A41.9 Sepsis, unspecified organism (principal); N39.0 Urinary tract infection, site not specified; B34.9 Viral infection, unspecified; K82.8 Other specified diseases of gallbladder; E87.6 Hypokalemia; D69.6 Thrombocytopenia, unspecified; R51 Headache; Z11.59 Encounter for screening for other viral diseases; Z87.891 Personal history of nicotine dependence
CPT/HCPCS: 36415; 71045; 74177; 76705; 80048; 80053; 80307; 81001; 82140; 82150; 82550; 82553; 82948; 83605; 83690; 83735; 84100; 84132; 84484; 85025; 85610; 85730; 86644; 86645; 86663; 86664; 86665; 86777; 86778; 87040; 87086; 87635; 93005; 99284; G0378; J0456; J0696; J1885; J2405; J3370; J3480; J7030; Q9967